=== PATIENT | male | born 1960 | race Caucasian/White ===

== ENCOUNTER 2024-01-13 05:19 | Emergency (ER) | payer MEDICARE ==
[~2024-01-13] VITALS: Ht 175.3 cm; Wt 75.0 kg
[2024-01-13] MEDS ORDERED: FUROSEMIDE 40 MG/4 ML VIAL ONE (05:21)
[2024-01-13] MEDS ORDERED: methylPREDNISolone SOD SUCC 125 MG/2 ML VIAL ONE (05:21)
[2024-01-13] MEDS ORDERED: ALBUTEROL/IPRATROPIUM 3 ML NEB INH ONE ×2 (05:30→06:30)
[2024-01-13] MEDS ORDERED: methylPREDNISolone SOD SUCC 125 MG/2 ML VIAL IV ONE (05:30)
[2024-01-13] MEDS ORDERED: CEFTRIAXONE/SODIUM CHLORIDE 2 GM/100 ML PIGGYBACK IV ONE (05:30)
[2024-01-13] MEDS ORDERED: FUROSEMIDE 40 MG/4 ML VIAL IV ONE (05:30)
[2024-01-13 05:36] LABS: PH, VENOUS 7.353 (7.31-7.41)
[2024-01-13 05:37] LABS: BASOPHILS 0.8 % (0-2); EOSINOPHILS 0.3 % (0-6); HEMOGLOBIN 13.3 g/dL (12.0-18.0); LYMPHOCYTES 16.5 % (24-44); MCH 39.9 (27-36); MCHC 33.4 g/dl (30-36); MCV 119.6 fl (81-99); MONOCYTES 9.8 % (0-12); NEUTROPHILS 72.6 % (39-80); PLATELET COUNT 180 K/uL (140-440); RBC 3.34 M/ul (4.3-5.7); RDW 17.7 (10.5-15.0)
[2024-01-13] MEDS ORDERED: LIPITOR20 MG (06:02)
[2024-01-13] MEDS ORDERED: KAPSPARGO SPRIN50 MG (06:02)
[2024-01-13] MEDS ORDERED: ZESTRIL40 MG (06:02)
[2024-01-13] MEDS ORDERED: BUSPIRONE HCL10 MG (06:03)
[2024-01-13 06:07] LABS: ALBUMIN 3.4 g/dL (3.4-5.0); ALBUMIN/GLOBULIN RATIO 0.92 (1.1-2.4); ANION GAP 19.1 (7-21); BUN/CREATININE RATIO 13.48 (6.0-28.6); CALCIUM 9.6 mg/dL (8.5-10.1); CREATININE, SERUM 0.89 mg/dL (0.70-1.30); POTASSIUM 4.1 mmol/L (3.5-5.1); PROTEIN, TOTAL 7.1 g/dL (6.4-8.2)
[2024-01-13 06:13] LABS: BILIRUBIN, URINE NEGATIVE (negative); BLOOD/HGB, URINE NEGATIVE (Negative); KETONE, URINE NEGATIVE (Negative); LEUK ESTERASE, URINE NEGATIVE (negative); NITRITE, URINE NEGATIVE (negative)
[2024-01-13] MEDS ORDERED: MULTIVITAMINS THERAPEUTIC 1 EA TAB PO ONE (06:15)
[2024-01-13] MEDS ORDERED: THIAMINE HCL 100 MG TAB PO ONE (06:15)
[2024-01-13] MEDS ORDERED: FOLIC ACID 1 MG TAB PO ONE (06:15)
[2024-01-13 06:37] LABS: INFLUENZA B NAA NEGATIVE (NEGATIVE); RESPIRATORY SYNCYTIAL VIR NAA NEGATIVE (NEGATIVE)
[2024-01-13] MEDS ORDERED: ASPIRIN 81 MG CHEW PO ONE (09:00)
[2024-01-13] MEDS ORDERED: LORazepam 2 MG/ML VIAL IV ONE (09:15)
[2024-01-13] MEDS ORDERED: LORazepam 2 MG/ML VIAL IV PRN (10:45)
[2024-01-13] MEDS ORDERED: MAGNESIUM SULFATE 2 GM/50 ML BAG IV ONE (12:30)
[2024-01-13] MEDS ORDERED: PHENOBARBITAL SOD 130 MG/ML VIAL IV ONE (12:30)
[2024-01-13] MEDS ORDERED: ENOXAPARIN SODIUM 80 MG/0.8 ML SYR SUB-Q ONE (14:15)
[2024-01-13 15:15] VITALS: BP 129/77
--- NOTE | 2024-01-14 22:46 | EKG ---
[facility] [address] [facility] [place] [address] Signed Sinus tachycardia Right bundle branch block Left anterior fascicular block Bifascicular block Left ventricular hypertrophy with repolarization abnormality ( R in aVL ) Cannot rule out Anterior infarct , age undetermined Abnormal ECG No previous ECGs available Confirmed by Akhil Cueto MD () on 01/14/2024 10:46:36 PM Electronically Signed By: AKHIL CUETO MD 01/14/24 2246 PATIENT NAME: MARGARET CAMERON Electrocardiogram DATE OF : 60 PHYSICIAN: AKHIL CUETO MD REPORT #: [id number] REPORT IS CONFIDENTIAL AND NOT TO BE RELEASED WITHOUT AUTHORIZATION
== END 2024-01-13 15:15 | disposition short-term general hospital (02) ==
LOC: ED 05:19
PROVIDERS: Internal Medicine
DX: I26.99 Other pulmonary embolism without acute cor pulmonale (principal); I50.9 Heart failure, unspecified; F10.10 Alcohol abuse, uncomplicated; J44.9 Chronic obstructive pulmonary disease, unspecified; F17.200 Nicotine dependence, unspecified, uncomplicated; Z79.899 Other long term (current) drug therapy; Z98.890 Other specified postprocedural states
CPT/HCPCS: 36415; 71045; 71260; 80053; 81003; 82803; 83880; 84484; 85025; 85060; 85379; 87502; 93005; 93010; 93970; 94640; 96366; 96367; 99285-25; A9270; G0480; J0696; J1650; J1940; J2060; J2560; J2919; J3475; Q9967; U0002

== ENCOUNTER 2024-12-14 09:33 | Emergency (ER) | payer MEDICARE ==
[~2024-12-14] VITALS: Ht 175.3 cm; Wt 66.0 kg
[~2024-12-14 09:33] MED LIST: BUSPIRONE HCL10 MG; KAPSPARGO SPRIN50 MG; LIPITOR20 MG; ZESTRIL40 MG
[2024-12-14] MEDS ORDERED: ASPIRIN 81 MG CHEW PO ONE (09:45)
[2024-12-14 09:50] LABS: BASOPHILS 1.0 % (0.2-1.2); EOSINOPHILS 0.1 % (0.8-7.0); LYMPHOCYTES 19.7 % (21.8-53.1); MCH 38.6 PG (25.7-32.2); MCHC 34.6 g/dL (32.3-36.5); MCV 111.5 fL (79.0-92.2); MONOCYTES 8.4 % (5.3-12.2); NEUTROPHILS 69.8 % (34.0-67.9); RBC 3.47 M/uL (4.63-6.08)
[2024-12-14] MEDS ORDERED: NITROGLYCERIN 0.4 MG SUBL SL PRN (10:00)
[2024-12-14 10:08] LABS: ALT (SGPT) 235.0 U/L (14-59); AST (SGOT) 455.0 U/L (15-37); GLOMERULAR FILTRATION RATE,EST 76.0 mL/min (>60); PROTEIN, TOTAL 7.6 g/dL (6.4-8.2); UREA NITROGEN 16.0 mg/dL (7-18)
[2024-12-14] MEDS ORDERED: NITROGLYCERIN PACKET TOP ONE (11:30)
[2024-12-14] MEDS ORDERED: FONDAPARINUX SODIUM SUB-Q ONE (12:15)
[2024-12-14 13:31] VITALS: BP 121/89
--- NOTE | 2024-12-16 07:38 | EKG ---
[facility] [address] [facility] [place] [address] Signed Sinus tachycardia Nonspecific intraventricular block Cannot rule out Anterior infarct (cited on or before 13-JAN-2024) T wave abnormality, consider inferior ischemia Abnormal ECG When compared with ECG of 13-JAN-2024 05:29, Current undetermined rhythm precludes rhythm comparison, needs review Nonspecific intraventricular block has replaced (RBBB and left anterior fascicular block) Questionable change in initial forces of Anterior leads Confirmed by Jayden Coombs DO ([id number]) on 12/16/2024 7:38:16 AM Electronically Signed By: JAYDEN COOMBS DO 12/16/24 0738 PATIENT NAME: MARGARET CAMERON Electrocardiogram DATE OF : 60 PHYSICIAN: JAYDEN COOMBS DO REPORT #: [id number] REPORT IS CONFIDENTIAL AND NOT TO BE RELEASED WITHOUT AUTHORIZATION
== END 2024-12-14 13:20 | disposition short-term general hospital (02) ==
LOC: ED 09:33
PROVIDERS: Emergency Medicine
DX: I21.4 Non-ST elevation (NSTEMI) myocardial infarction (principal); I10 Essential (primary) hypertension
CPT/HCPCS: 36415; 71045; 71260; 80053; 83735; 84484; 85025; 85060; 93005; 93010; 96372; 96374; 96376; 99285-25; A9270; J1652; J2405; Q9967